=== PATIENT | male | born 1965 | race Two or more races ===

== ENCOUNTER 2024-09-11 10:37 | Emergency (ER) | payer MEDICAID, SELFPAY ==
--- NOTE | 2024-09-11 10:40 | EKG_ITS ---
[facility] Test Date: 2024-09-11 Pat Name: HUMBERTO ROMERO Department: Room: - Gender: Male [employer]: : 1965 Requested By: ED Temporary Provider Order Number: [id number] Reading MD: ED Temporary Provider Measurements Intervals [place] Rate: 68 P: 36 WA: 176 QRS: -35 QRSD: 129 T: 22 QT: 394 QTc: 419 Interpretive Statements SINUS RHYTHM LEFT AXIS DEVIATION [QRS AXIS < -30] RIGHT BUNDLE BRANCH BLOCK [120+ ms QRS DURATION, UPRIGHT V1, 40+ ms S IN I/aVL/V4/V5/V6] No previous ECG available for comparison /store/S0/[id number]/ecg/[id number].pdf
[2024-09-11 10:45] VITALS: BP 137/87; PULSE 67; RESP 18; TEMP 36.7; O2SAT 95; BMI 31.9
--- NOTE | 2024-09-11 10:54 | XR_ITS ---
Examination: PA lateral chest 2 views TECHNIQUE: Upright PA lateral chest 2 views Exam date and time: September 11, 2024 1104 hours INDICATIONS: Nausea dizziness chest pressure beginning 3 weeks ago. FINDINGS: Normal heart size Lungs are clear. The osseous structures are intact IMPRESSION: No active disease
--- NOTE | 2024-09-11 10:54 | PD.EDRME ---
Rapid Medical Screening Exam E Arrival date/time: 09/11/24 10:37 59 yr old male presents for concerns for dizziness x2 weeks and chest pain today Chief Complaint: Chest Pain Vital signs: Vital Signs Temperature 98.1 F 09/11/24 10:45 Pulse Rate 67 09/11/24 10:45 Respiratory Rate 18 09/11/24 10:45 Blood Pressure 137/87 H 09/11/24 10:45 Pulse Oximetry (%) 95 09/11/24 10:45 Oxygen Delivery Method Room Air 09/11/24 10:45
[2024-09-11 11:09] LABS: Basophils % (Auto) 0 % (0-2.5); Eosinophils # (Auto) 0.1 Thou/mm3 (0.0-0.5); Eosinophils % (Auto) 2 % (0-10); Hematocrit 46.2 % (41.0-53.0); Hemoglobin 15.6 g/dL (13.5-16.0); Immature Granulocytes % (Auto) 0 % (0-0); Immature Granulocytes Auto 0.01 Thou/mm3 (0.00-0.00); Lymphocytes # (Auto) 2.2 Thou/mm3 (1.0-4.8); Lymphocytes % (Auto) 37 % (10-50); Mean Corpuscular HGB Conc 33.8 g/dl (31.0-37.0); Mean Corpuscular Hemoglobin 28.8 pg (25.0-35.0); Mean Corpuscular Volume 85 fL (80-100); Monocytes # (Auto) 0.4 Thou/mm3 (0.0-0.8); Monocytes % (Auto) 6 % (0-12); Neutrophils # (Auto) 3.3 Thou/mm3 (1.8-7.7); Neutrophils % (Auto) 54 % (37-80); Nucleated Red Blood Cell % 0 /100 WBC (0); Platelet Count 220 Thou/mm3 (140-440); Red Blood Count 5.41 Miln/mm3 (4.50-5.90); White Blood Count 6.1 Thou/mm3 (3.8-10.6)
[2024-09-11 11:20] LABS: INR 1.1 (0.9-1.3); Partial Thromboplastin Time 27.2 Seconds (22.0-36.0); Prothrombin Time 11.6 Seconds (9.0-12.2)
[2024-09-11 11:25] LABS: B-Type Natriuretic Peptide < 20 pg/mL (0-100)
[2024-09-11 11:26] LABS: Alanine Aminotransferase 27 U/L (10-49); Albumin, Serum 4.7 gm/dL (3.4-4.8); Albumin/Globulin Ratio 1.5 (1.2-2.2); Alkaline Phosphatase 78 U/L (46-116); Anion Gap 8 (7-16); Aspartate Amino Transferase 25 U/L (0-34); BUN/Creatinine Ratio 20 Ratio (12-20); Bilirubin,Total 0.5 mg/dL (0.3-1.2); Blood Urea Nitrogen 14 mg/dL (9-23); Calcium 9.6 mg/dL (8.3-10.6); Calcium (Corrected) 9.6 mg/dL (8.5-10.1); Chloride 106 mMol/L (98-107); Creatinine (Component) 0.7 mg/dL (0.6-1.3); Estimated Creatinine Clearance 120.2 mL/min (>60); Globulin 3.1 gm/dL (2.3-3.5); Glucose 121 mg/dL (74-106); Magnesium 1.7 mg/dL (1.6-2.6); Osmolality,Calculated 280 (275-295); Potassium 4.4 mMol/L (3.4-5.1); Sodium 140 mMol/L (136-145); Total Protein 7.8 gm/dL (5.7-8.2); Troponin I < 0.002 ng/mL (0.0-0.045); eGFR > 60 See Note
[2024-09-11 11:34] LABS: Collection Type, Urine Clean Catch
[2024-09-11 11:40] LABS: Bilirubin,Urine Negative (Negative); Blood,Urine Negative (Negative); Clarity,Urine Clear (Clear/Hazy); Color,Urine Yellow (Lt Yel-Yel); Glucose, Urine Negative (Negative); Ketones,Urine Negative (Negative); Leukocyte Esterase,Urine Negative (Negative); Nitrite,Urine Negative (Negative); PH,Urine 5.5 (5.0-7.0); Protein,Urine Negative (Neg - Trace); RBC,Urine 2 /hpf (0-3); Specific Gravity,Urine 1.029 (1.001-1.035); Squamous Epithelial Cell,Urine 2 /hpf (0-5); Urobilinogen,Urine Negative mg/dL (0.0-1.0); WBC,Urine 1 /hpf (0-5)
[2024-09-11 11:48] LABS: Amphetamine/Methamp Scrn,U Negative (Negative); Barbiturate Screen,Urine Negative (Negative); Benzodiazepines Screen,Urine Negative (Negative); Benzoylecgonine Screen, Ur Negative (Negative); Fentanyl Screen,Urine Negative (Negative); Opiate Screen,Urine Negative (Negative); THC Screen,Urine Negative (Negative)
--- NOTE | 2024-09-11 13:00 | PD.EDCHEST ---
ED Chest Pain RME/HPI General Chief Complaint: Chest Pain Stated Complaint: CHEST PAIN, DIZZINESS, NAUSEA Time Seen by Provider: 09/11/24 12:25 Arrival date/time: 09/11/24 10:37 RME / HPI RME / HPI narrative: 59-year-old male patient with significant history of hypertension, came in for evaluation regarding epigastric pain. Onset of symptoms for the last 2 weeks, getting worse today, described as sharp pain, burning-like sensation, radiating to the substernal area. Associated with nausea. And dizziness denies any vomiting. Denies any cough denies any fever denies any other complaints no medications taken prior to arrival. Related Data Home Medications ?Medication ?Instructions ?Recorded ?Confirmed losartan 100 mg tablet 100 mg PO QDAY 02/15/23 02/15/23 pantoprazole 20 mg tablet,delayed 20 mg PO QDAY 02/15/23 02/15/23 release Previous Rx's ?Medication ?Instructions ?Recorded pantoprazole 40 mg tablet,delayed 40 mg PO QDAY #10 tabs 09/11/24 release (Protonix) sucralfate 1 gram tablet (Carafate) 1 g PO BID #20 tabs 09/11/24 Allergies Allergy/AdvReac Type Severity Reaction Status Date / Time No Known Allergies Allergy Verified 02/15/23 14:51 Review of Systems Review of Systems Narrative Review of Systems: Review of system reviewed and within normal limits except mentioned in HPI ED Exam Narrative Physical exam: VITAL SIGNS: Reviewed. GENERAL APPEARANCE: Alert and interactive, follows commands, no acute distress, HEAD AND FACE: Non-traumatic. ENT: PERRL, pink conjunctivitis, eyelid no trauma, Mucous membrane moist. NECK: Supple, nontender, no nuchal rigidity. CHEST: No tenderness, no crepitus, no paradoxical movement, no retractions. LUNGS: Clear, well ventilated, symmetric, no rales, no wheezing, no ronchi, no stridor, good breath sounds bilaterally. HEART: Regular rate, regular rhythm, no murmur, no gallops. ABDOMEN: Soft, positive bowel sounds, nondistended, no guarding, substernal tenderness no rebound, no masses, RECTAL: Deferred. GENITAL: Deferred. NEUROLOGICAL: Gross motor function intact sensory function intact, Appropriate for age. MUSCULOSKELETAL: low back nontender, full range of motion. EXTREMITIES: Nontender, full range of motion. SKIN: Color pink, dry, no rash, no lacerations, no abrasions, no contusions. LYMPHATICS: Deferred. Course Quality Measures none Orders Category Date Time Status EKG (ED ONLY) *Do not use* NOW Care 09/11/24 10:40 Completed EKG (ED Only) Stat Exams 09/11/24 10:40 Draft XR chest 2V Stat Exams 09/11/24 10:54 Completed B-Type Natriuretic Peptide Stat Lab 09/11/24 11:00 Completed CBC Stat Lab 09/11/24 11:00 Completed Comprehensive Metabolic Panel Stat Lab 09/11/24 11:00 Completed Drug Screen,Urine Stat Lab 09/11/24 11:14 Completed Magnesium Stat Lab 09/11/24 11:00 Completed Partial Thromboplastin Time Stat Lab 09/11/24 11:00 Completed Prothrombin Time with INR Stat Lab 09/11/24 11:00 Completed Troponin I Stat Lab 09/11/24 11:00 Completed Urinalysis Stat Lab 09/11/24 11:20 Completed Vital Signs Vital signs: Vital Signs Temperature 98.1 F 09/11/24 10:45 Pulse Rate 67 09/11/24 10:45 Respiratory Rate 18 09/11/24 10:45 Blood Pressure 137/87 H 09/11/24 10:45 Pulse Oximetry (%) 95 09/11/24 10:45 Oxygen Delivery Method Room Air 09/11/24 10:45 Chest Pain MDM Narrative MDM Narrative:: 59-year-old male patient with significant history of hypertension, came in for evaluation regarding epigastric pain. Onset of symptoms for the last 2 weeks, getting worse today, described as sharp pain, burning-like sensation, radiating to the substernal area. Associated with nausea. And dizziness denies any vomiting. Denies any cough denies any fever denies any other complaints no medications taken prior to arrival. I personally reviewed and interpreted the x-ray of this patient. There is no acute abnormalities found, no infiltrates no pneumothorax no hemothorax normal chest x-ray. Review of other structures was without significant abnormal findings also. I additionally reviewed the radiologist report and agree with the interpretation. Patient's laboratory workup all came back normal including normal troponin EKG showed normal sinus rhythm, ventricular rate of 68 bpm, no ST segment elevation or depression noted. Patient appears nontoxic and hemodynamically stable. Patient discharged home and instructed to follow-up with primary care provider in 24 to 48 hours. Instructed to return to the emergency department immediately if worsening of symptoms Patient data External records reviewed:: None Clinical information provided by:: patient Social determinants that could affect healthcare access:: none Patient has the following chronic illnesses:: Hypertension How is presenting disease/condition affected by chronic disease/condition?: uneffected by Evaluation data The following diagnostics were reviewed and interpreted by me:: lab results, radiology exam(s) and EKG tracing(s) Lab and/or radiology exams considered but not ordered:: None Interpretation Summary: See results MDM Medications / Prescriptions Medications or Prescriptions considered but not ordered:: None Medication administrations:: None Consultations Consultation(s) initiated? (list below): No Diagnosis Chest Pain Differential Diagnosis: other (GERD, chest pain, ACS) Most likely diagnosis given after review of the tests above:: Chest pain due to GERD Admission Indicated Admission indicated?: not indicated Admission Request Was there a request for admission?: No Disposition Plan Disposition Plan: Discharge Discharge Attestation Discharge Attestation: The patient was given an opportunity to ask questions and understood the discharge instructions. Discharge instructions specifically effects, indications for sooner follow up or return to the emergency department, and the expected course of current diagnosis. Patient condition: Stable Discharge Plan Plan Patient Disposition: HOME (Self Care) Disposition Comment: stable Prescriptions/Referrals Prescriptions/Med Rec: New sucralfate [Carafate] 1 gram tablet 1 g PO BID Qty: 20 0RF pantoprazole [Protonix] 40 mg tablet,delayed release (DR/EC) 40 mg PO QDAY Qty: 10 0RF No Action pantoprazole 20 mg tablet,delayed release (DR/EC) 20 mg PO QDAY Patient Comments: TAKE 1 TABLET BY MOUTH ONCE DAILY losartan 100 mg tablet 100 mg PO QDAY Patient Comments: TAKE 1 TABLET BY MOUTH ONCE DAILY Referrals: [facility] ([facility])Bree PA-C [Primary Care Provider] - In 1 week Problem List Clinical Impression: Chest pain due to GERD Patient/Caregiver Discharge Instructions Discharge Activity: activity as tolerated Education Materials: ED GERD (Adult) Additional Instructions: Thank you for the opportunity for serving you today. You are stable for discharged . You are advised to: Follow-up with your PCP in 1 to 2 days Return to ED for worsening of symptoms Increase oral fluids Take medication as prescribed Print Language: Croatian Stand Alone Forms: [employer] Award Info., Patient Portal Info Letter PA/STATION INSTALLATION SUPERVISOR Supervising Physician PA/STATION INSTALLATION SUPERVISOR Supervising Physician: MD Kirill
== END 2024-09-11 13:23 | disposition home or self-care (01) ==
PROVIDERS: Nurse Practitioner Primary Care; Emergency Provider Emergency Medicine; PCP Physician Assistant
DX: K21.9 Gastro-esophageal reflux disease without esophagitis (principal); R07.9 Chest pain, unspecified; I10 Essential (primary) hypertension; R42 Dizziness and giddiness; R11.0 Nausea
CPT/HCPCS: 36415; 71046; 80053; 80307; 81001; 83735; 83880; 84484; 85025; 85610; 85730; 93005; 99283